=== PATIENT | male | born 1990 | race Caucasian/White ===

== ENCOUNTER 2022-05-01 17:06 | Emergency (ER) | payer OTHER ==
[~2022-05-01] VITALS: Ht 172.7 cm; Wt 71.0 kg
[2022-05-01] MEDS ORDERED: ONDANSETRON 4MG ODT PO ONE (18:00)
[2022-05-01] MEDS ORDERED: IBUPROFEN 400MG TABLET PO ONE (18:00)
[2022-05-01] MEDS ORDERED: ONDA4TAB11 PO (19:02)
[2022-05-01] MEDS ORDERED: IBUP-2028 MT (19:02)
[2022-05-01 19:22] VITALS: BP 134/71
== END 2022-05-01 19:23 ==
LOC: ER 17:44
DX: R11.10 Vomiting, unspecified (principal); Z65.3 Problems related to other legal circumstances; R03.0 Elevated blood-pressure reading, without diagnosis of hypertension
CPT/HCPCS: 99283; Q0162; Z7610